=== PATIENT | female | born 1975 | race African-American/Black ===

== ENCOUNTER 2017-08-18 23:57 | Emergency (ER) | payer OTHER ==
[~2017-08-18] VITALS: Ht 160 cm; Wt 59.0 kg
[2017-08-19 00:30] VITALS: BP 142/90; PULSE 83; RESP 16; TEMP 98.3; O2SAT 100
[2017-08-19] MEDS ORDERED: CYCLOBENZAPRINE HCL 10 MG TAB PO ONE (02:15)
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
[2017-08-19] MEDS ORDERED: IBUPROFEN 600 MG TAB PO ONE (02:45)
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
[2017-08-19] MEDS ORDERED: CYCL10TA PO (03:00)
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
== END 2017-08-19 03:33 | disposition home or self-care (01) ==
LOC: NEPE 23:57
DX: S16.1XXA Strain of muscle, fascia and tendon at neck level, initial encounter (principal); S46.912A Strain of unspecified muscle, fascia and tendon at shoulder and upper arm level, left arm, initial encounter; V49.50XA Passenger injured in collision with unspecified motor vehicles in traffic accident, initial encounter
CPT/HCPCS: 70450; 71045; 72125; 99284